=== PATIENT | male | born 1955 | race Caucasian/White ===

== ENCOUNTER 2017-02-09 12:22 | Inpatient (IN) | payer MEDICARE, MEDICAID ==
[~2017-02-09] VITALS: Ht 170.2 cm; Wt 66.3 kg
[2017-02-09] VITALS (17 sets, daily range): BP systolic 113–157; BP diastolic 47–126
[~2017-02-09 12:22] MED LIST: ACETAMINOPHEN325 M2 PO; ALBUTEROL2.5 MG/NEB IH; ALBUTEROL2.5 MG/NEB INH; ATIVAN1 MG PO; ATROVENT H0.017 MG/A IN; AUGMENTIN 875-1 EACH PO; AUGMENTIN1 TA1 PO; BUDESONIDE0.25 MG/1 IH; CEFDINIR 300MG300 MG PO; CLARITIN10 MG PO; COUMADIN3 M1 PO; FAMOTIDINE 20MG20 MG PO; FINASTERIDE5 MG PO; FLOMAX 0.4MG C0.4 MG PO; INDERAL10 MG PO; INHALER INH; KEFLEX 500MG.500 MG PO; LEVAQUIN500 MG PO; MEDROL 4MG. DOSE4 MG PO; MINOCYCLINE 10100 MG PO; MOBIC15 MG PO; MONTELUKAST SOD10 MG PO; NICODERM C21 MG/24 H TD; OMEPRAZOLE20 MG PO; PANTOPRAZOLE SO40 M1 PO; PERCOCET 5/3251 EACH PO; PERFOROMIS20 MCG/2 M IH; PREDNISONE 10MG10 MG PO; PREDNISONE 20MG20 MG PO; PREDNISONE 5MG.5 MG PO; PREDNISONE50 MG PO; TIZANIDINE HCL 44 MG PO; TRAMADOL 50MG T50 M1 PO; TRAZODONE 50MG50 MG PO; XANAX 0.25MG0.25 MG PO; XANAX 0.5MG TA0.5 MG PO; ZITHROMAX Z PA250 MG PO
--- NOTE | 2017-02-09 12:47 | Emergency Room Report ---
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 N Clinical Suspician of Infection? N Mental Status: 1 - Regular (Normal Baseline) Sepsis Risk:Severe Sepsis Risk Have you (or family members/close friends) recently traveled outside the [place]? N If Yes, where/when: Have you had exposure to infectious disease within the past month? N TB? Other? Specify: Comment The patient has severe shortness of breath. He has had a hacking cough for one week with some yellow sputum. He has felt feverish, but temperature not taken. Last night his breathing began getting worse and is now severely short of breath. He has severe chronic obstructive pulmonary disease. He has been on the ventilator in the past, most recently about a year and a half ago. He is a former smoker. He is on oxygen 2 L, 24 hours a day. He has a nebulizer he uses at home. He is on prednisone 5 mg a day maintenance. ALLERGIES Coded Allergies: Iodinated Contrast- Oral and IV Dye (Iodinated Contrast Media - IV Dye) (Severe, A-[id number]/THROAT 06/22/16) fluticasone (From Advair Diskus) (Severe, J-SPZEUM-TDMH/THROAT 06/22/16) salmeterol (From Advair Diskus) (Severe, C-GVZPCT-ANCT/THROAT 06/22/16) amoxicillin (Mild, 06/22/16) Home Medications Active Scripts CEFDINIR (Cefdinir) 300 MG PO DAILY #14 CAP Prov: 06/02/16 Prednisone (Prednisone 5MG) 5 MG PO BID #52 TAB Prov: 06/02/16 Prednisone (Prednisone 10MG) 10 MG PO DIRECTED #30 TAB Prov: 06/22/16 Prednisone (Prednisone 20MG) 20 MG PO BID #10 TAB Prov: 03/02/16 Reported Medications Alprazolam (Xanax 0.5MG) 0.5 MG PO BIDP PRN ANXIETY TIZANIDINE HCL (Tizanidine Hcl 4 Mg Tablet) 4 MG PO Q8HP PRN MUSCLE RELAXER TAMSULOSIN HCL (Flomax 0.4MG) 0.4 MG PO QHS Omeprazole (Omeprazole 20MG) 40 MG PO DAILY Formoterol Fumarate (Perforomist) 20 MCG IH DAILY Budesonide 0.25 MG IH BID Famotidine (Famotidine 20MG) 20 MG PO DAILY Finasteride 5 MG PO DAILY Propranolol Hcl (Inderal) 10 MG PO Q8HRS TRAZODONE HCL (Trazodone HCl) 50 MG PO QHS Loratadine (Claritin 10MG Tab) 10 MG PO DAILY ALBUTEROL (Albuterol 0.083% Neb) 2.5 MG INH PRN ASTHMA History Medical History General CAD? No Angina: Yes [place]: No Hypertension? No Hyperlipidemia? No CHF? No DVT? No PE? No COPD? Yes Asthma? Yes Anemia? No GERD? No Gastric ulcers? No GI Bleed? No Hernia? No Thyroid Problems? No Hypothyroidism? No CVA? No Seizures? No Diabetes? No Renal Insuffiency? No End Stage Renal Disease? No UTI? No Stones? Yes BPH? No GB Disease: No Nephritic Syndrome? No Asplenia? No Hepatitis? No Sickle Cell Disease? No Arthritis? Yes Migraines? No Cataracts? No Glaucoma? No MRSA? No HIV? No TB? No Anxiety? Yes Depression? No Cancer? No More? No Immunization Hx DT/Tetanus Unknown Flu Refused Pneumonia Excluded/Contraindicated Surgical Hx Previous Surgery?Y HEART CATH TONSILECTOMY EAR TUBEs TRACH GTUBE Family History Family Hx Diabetes No CAD No Hypertension Yes Hyperlipidemia No Cancer Yes TB No Social History Smoking Hx Smoker: Former Smoker Tobacco: Yes Type Cigarettes Packs/day < 1 Pack Alcohol Alcohol: No Review of Systems All Other Systems Reviewed and Negative Constitutional diaphoresis, fever Respiratory cough, shortness of breath, wheezing Cardiovascular chest pain (due to breathing problem) Gastrointestinal denies diarrhea, denies vomiting Physical Exam Vital Signs Vital Signs Date Time Temp Pulse Resp B/P Pulse O2 O2 Flow FiO2 Ox Delivery Rate 02/09 1545 12 02/09 1545 96 OXYGEN 12 02/09 1438 128 28 112/75 96 02/09 1433 123 30 179/80 96 02/09 1319 130 24 121/89 93 15 02/09 1312 18 02/09 1300 2 02/09 1230 99.1 120 28 126/93 94 15 02/09 1220 15 02/09 1220 15 02/09 1220 16 02/09 1220 35 02/09 1220 98 OXYGEN 15 General Appearance moderate distress, thin Eye Exam - bilateral eye normal exam, bilateral eye PERRL, bilateral eye EOMI Ear, Nose, Throat hearing grossly normal, normal ENT inspection Neck normal inspection, non-tender, supple, full range of motion Respiratory Status Yes: trachea midline, chest symmetrical, non tender chest. No: respiratory distress. Lung Sounds bilateral: decreased breath sounds. Cardiovascular no peripheral edema, no gallop, no JVD, no murmur, no rub, normal peripheral pulses, tachycardia Peripheral Pulses Pulses normal Yes Gastrointestinal normal bowel sounds, normal exam, non tender, soft, no organomegaly Extremities non-tender, normal range of motion, normal inspection Neurologic alert, normal exam, oriented x 3 Mental status very anxious, states takes Xanax at home, but has not had it today Skin intact, normal color, warm/dry Lymphatic no adenopathy Medical Decision Making LABS/Meds/Orders Pt receiving controlled substance in ED? Yes Irwin was queried for this patient? No Reason not queried - emergent pt cond=no time Results/Orders Laboratory Tests 02/09/17 1245: ABG pH 7.18 *L, ABG pCO2 (Temp Corrct 85.1 H, ABG pO2 (Temp Correct 299.2 H, ABG HCO3 30.9 H, ABG Total CO2 33.5 H, ABG O2 Sat (Calculated) 99.2, ABG Base Excess 2.5 H, Socrates Test ACCEPTABLE, Blood Gas Comments RIGHT RADIAL 02/09/17 1235: Lactic Acid 1.5 02/09/17 1235: Sodium 137, Potassium 4.7, Chloride 98, Carbon Dioxide 32, BUN 12, Creatinine 1.1, Estimated Creat Clear 64, Estimated GFR (MDRD) 68, Glucose 148 H, Calcium 9.6, Total Bilirubin 0.3, AST 12 L, ALT 21, Alkaline Phosphatase 97, Creatine Kinase 92, CK-MB (CK-2) Rel Index 2.4, CK and CKMB Interp 2.2, Troponin I < 0.02 , B-Natriuretic Peptide 9, Total Protein 8.9 H, Albumin 4.3, Globulin 4.6 H, Albumin/Globulin Ratio 0.9 L, WBC 13.0 H, RBC 5.20, Hgb 15.2, Hct 46.6, MCV 89.6, RDW 13.7, Plt Count 244, MPV 7.6, Gran % 86.8 H, Gran # 11.3 H, Total Counted 100, Lymphocytes % 8.4 L, Monocytes % 4.4, Eosinophils % 0.1, Basophils % 0.3, Neutrophils 89 H, Band Neutrophils 1, Lymphocytes (Manual) 6 L, Lymphocytes # 1.1, Monocytes (Manual) 3, Monocytes # 0.6, Eosinophils # 0.0, Basophils # 0.0, Metamyelocytes 1, Platelet Estimate NORMAL, PUBS MCHC 32.6, MCH 29.2 Current Medication Orders Sig/Andrews Start time Last Medication Dose Route Stop Time Status Admin Famotidine 20 MG DAILY 02/10 900 UNV PO Finasteride 5 MG DAILY 02/10 900 UNV PO Levofloxacin/Dextrose 150 ML DAILY 02/10 900 UNVr IV 02/14 1030 Loratadine 10 MG DAILY 02/10 900 UNV PO Tamsulosin HCl 0.4 MG QHS 02/09 2100 UNV PO Trazodone HCl 50 MG QHS 02/09 2100 UNV PO Albuterol/Ipratropium 3 ML QIDRT 02/09 2000 UNVr INH Methylprednisolone 80 MG Q6 02/09 1700 UNVr 02/09 Sodium Succinate IV 1744 Alprazolam 0.5 MG BIDP PRN 02/09 1500 UNV 02/09 PO 1745 Nicotine 21 MG DAILYP PRN 02/09 1500 UNV TD Sodium Chloride 10 ML PRN PRN 02/09 1500 UNV IV Tizanidine HCl 4 MG Q8HP PRN 02/09 1500 UNV PO Levofloxacin/Dextrose 150 ML .STK-MED ONE 02/09 1431 DC IV Levofloxacin/Dextrose 150 ML ONCE ONE 02/09 1345 DCr IV 02/09 1514 Lorazepam 0 .STK-MED ONE 02/09 1309 DC .ROUTE Albuterol/Ipratropium 3 ML Q30MIN 02/09 1300 DCr INH 02/09 1331 Lorazepam 0.5 MG ONCE ONE 02/09 1300 DC 02/09 IV 02/09 1301 1312 Methylprednisolone 125 MG ONCE ONE 02/09 1300 DCr 02/09 Sodium Succinate IV 02/09 1301 1311 Albuterol/Ipratropium 0 .STK-MED ONE 02/09 1258 DCr INH Albuterol/Ipratropium 0 .STK-MED ONE 02/09 1242 DCr INH Methylprednisolone 0 .STK-MED ONE 02/09 1235 DCr Sodium Succinate .ROUTE Albuterol/Ipratropium 3 ML ONCE ONE 02/09 1230 DCr INH 02/09 1231 Sodium Chloride 10 ML PRN PRN 02/09 1230 AC IV 02/10 1225 Orders Procedure Date/time Status DIET-REGULAR ( TOLERATED) 02/09 D Active ARTERIAL BLOOD GAS REQUEST 02/09 1600 Active RT Pulse Oximetry, Provide 02/09 1505 Active RT O2 Installation/Change Set 02/09 1505 Active RT O2 Therapy, Monitor/[place] 02/09 1505 Active RT BIPAP, Initial Setup/Change 02/09 1505 Active RT BIPAP, Monitor/Maintain 02/09 1505 Active RT Aerosol Treatment, Provide 02/09 1505 Active RT Aerosol Treatment, Provide 02/09 1505 Active BIPAP-INITIAL SETUP 02/09 1400 Complete Decision to admit 02/09 1344 Active RESP THERAPY REQUEST (GENERAL) 02/09 1334 Active FSBS REQUEST BY CARE AREA 02/09 1301 Active ARTERIAL BLOOD GAS REQUEST 02/09 1300 Active RT REQUEST DUONEB 02/09 1258 Active DIFFERENTIAL-WBC 02/09 1235 Complete ELECTROCARDIOGRAM REQUEST 02/09 1226 Active RT REQUEST DUONEB 02/09 1226 Active IV SALINE LOCK 02/09 1226 Active CULTURE, SPUTUM 02/09 1226 Active CULTURE, BLOOD 02/09 1226 Active LACTIC ACID 02/09 1226 Complete CBC WITH AUTO DIFF 02/09 1226 Complete CARDIAC ENZYMES 02/09 1226 Complete CHEM 12 PROFILE 02/09 1226 Complete BRAIN NATRIURETIC PEPTIDE 02/09 1226 Complete 12 LEAD EKG-LARISA (INITIAL) 02/09 1225 Active ADMIT PATIENT 02/09 UNK Active PULSE OXIMETRY REQUEST 02/09 UNK Active OXYGEN REQUEST 02/09 UNK Active RT REQUEST DUONEB 02/09 UNK Active VITAL SIGNS 02/09 UNK Active POM NURSE JOSÉ MIGUEL HOSE ORDER 02/09 UNK Active IV SALINE LOCK 02/09 UNK Active CODE STATUS 02/09 UNK Active PATIENT ACTIVITY ORDER 02/09 UNK Active CM/EKG CM/EKG Comments EKG interpreted by Yohannes Gunn MD: Rhythm: sinus tachycardia Rate: 122 [place]: Leftward Ectopy: none Conduction: normal ST Segment Changes: none T Wave Changes: none Q Waves: none No evidence of acute ischemia or injury Baseline artifact and wander present, but I consider the EKG adequate for accurate interpretation. XRAY/CT/US XRAY/CT/US XRAY chest Comment X-ray interpreted by Yohannes Gunn M.D.: severe chronic obstructive pulmonary disease, chronic conglomerate masses bilaterally Progress - 1:30 PM: I discussed blood gas results with patient and his ex-. They're both very adamant that they do not want him put on the ventilator "unless its life and situation". They both appear that he would not be able to get off of the ventilator as they almost never got him off the last time he was on it. He was on a ventilator for approximately 5 months at that time. They are agreeable at this time to trying BiPAP. 2:00 PM: I have discussed the case with Dr. Ahuja who agrees to admit the patient to the hospital. We discussed the patient's clinical information, including history, exam, laboratory and radiology results and ED course. Per hospital procedure, I will write temporary bridge inpatient orders on the patient. Specific orders requested by the admitting physician: Continue BiPAP, repeat ABGs and 2 hours. Continue antibiotics, steroids, nebulizer treatments. 2:30 PM: The patient did not tolerate BiPAP. He was spitting his dentures out, coughing continuously, extremely anxious. His ex- felt it was making him work too hard to breathe and she says that the last time he had coughing and gagging while on BiPAP it caused him to aspirate any ended up on the ventilator. I removed the BiPAP mask and removed his dentures. Respiratory therapy was called down. She has placed him on a Ventimask. He is getting another nebulizer treatment. He and his ex- still adamantly refuses intubation. Departure Departure Disposition Still a Patient Clinical Impression Primary Impression: Acute respiratory failure with hypoxia and hypercapnia Secondary Impressions: Acute bronchitis Qualifiers: Bronchitis organism: unspecified organism Qualified Code: J20.9 - Acute bronchitis, unspecified Acute exacerbation of chronic obstructive pulmonary disease Condition STABLE Referrals Leigha TOLBERT,Sean Mcdonald (Family) ED Critical Care Critical Care Yes Time spent 30-74 min Vital system(s) involved: Respiratory Failure I was present at bedside for Coordinating pt's care, Interpreting EKGs/Strips , During my initial exam, Reviewing lab results, Reviewing old records, Discussing pt condition, For re-examinations, Examining radiographs at 1930
[2017-02-09 12:49] LABS: HEMOGLOBIN 15.2 g/dL (14.1-18.0); LYMPH # 1.1 K/mm3 (0.7-4.5); LYMPH % 8.4 % (10-50)
[2017-02-09 13:14] LABS: BUN 12 mg/dL (7-18); GFR (ESTIMATED) 68 ML/MIN (>60)
[2017-02-09 13:15] LABS: NEUTROPHILS 89 % (42-76)
--- NOTE | 2017-02-09 13:51 | RADIOLOGY REPORT PS360 ---
CHEST-PORTABLE HISTORY: Shortness of air, COPD SOA ORDERING PHYSICIAN: Yohannes Gunn MD PATIENT AGE: 61 years COMPARISON: 06/22/2016 FINDINGS: The cardiomediastinal silhouette and pulmonary vascularity are within normal limits. COPD with bilateral prominent pulmonary parenchymal opacities once again noted consistent with conglomerate masses. No new areas of consolidation.. No acute bony abnormalities. IMPRESSION: COPD with conglomerate masses with overall no significant change
[2017-02-09 14:58] LABS: ALLEN'S TEST ACCEPTABLE; ARTERIAL ABE 2.5 MMOL/L (-2.4-+2.3); ARTERIAL PO2 299.2 MMHG (80-100); ARTERIAL TCO2 33.5 MMOL/L (23-27); OXYGEN 100% NRB
[2017-02-09] MEDS ORDERED: SYMBICORT1 AE1 IH (20:41)
[2017-02-09] MEDS ORDERED: AMLO5TAB PO (20:43)
[2017-02-09 21:14] LABS: CORONAVIRUS 229E NOT DETECTED (NOT DETECTE); CORONAVIRUS HKU 1 NOT DETECTED (NOT DETECTE); CORONAVIRUS NL63 NOT DETECTED (NOT DETECTE); CORONAVIRUS OC43 NOT DETECTED (NOT DETECTE)
[2017-02-10] VITALS (20 sets, daily range): BP systolic 111–172; BP diastolic 71–101
[2017-02-10 02:09] LABS: RHINOVIRUS/ENTEROVIRUS DETECTED (NOT DETECTE)
[2017-02-10 06:22] LABS: ALLEN'S TEST ACCEPTABLE; ARTERIAL ABE 3.1 MMOL/L (-2.4-+2.3); ARTERIAL PO2 61.2 MMHG (80-100); OXYGEN 28%
--- NOTE | 2017-02-10 08:37 | HISTORY AND PHYSICAL REPORT ---
Demographics: Admit date: 02/09/17 Chief complaint: sob PRIMARY DIAGNOSIS: COPD Allergies: Coded Allergies: Iodinated Contrast- Oral and IV Dye (Iodinated Contrast Media - IV Dye) (Severe, J-[id number]-IFUI/THROAT 06/22/16) fluticasone (From Advair Diskus) (Severe, W-UKPYOO-DQAB/THROAT 06/22/16) salmeterol (From Advair Diskus) (Severe, C-XSLDVE-ETLO/THROAT 06/22/16) amoxicillin (Mild, 06/22/16) History of present illness: History of present illness: this wm presented to ed with progressive sob and wheezing over the last few days despite op rx - pt has sig hx of copd and in past had prolonged intubation and on ventilator - patient has severe shortness of breath. He has had a hacking cough for one week with some yellow sputum. He has felt feverish, but temperature not taken. Last night his breathing began getting worse and is now severely short of breath. He has severe chronic obstructive pulmonary disease. He has been on the ventilator in the past, most recently about a year and a half ago. He is a former smoker. He is on oxygen 2 L, 24 hours a day. He has a nebulizer he uses at home. He is on prednisone 5 mg a day maintenance.this noted from ed record Past medical history: Family HX Diabetes No CAD No Hypertension Yes Hyperlipidemia No Cancer Yes TB No Immunization HX DT/Tetanus Unknown Flu Refused Pneumonia Excluded/Contraindicated TB Test in last year No General CAD? No Angina: Yes [place]: No Hypertension? No Hyperlipidemia? No CHF? No DVT? No PE? No COPD? Yes Asthma? Yes Anemia? No GERD? No Gastric ulcers? No GI Bleed? No Hernia? No Thyroid Problems? No Hypothyroidism? No CVA? No Seizures? No Diabetes? No Renal Insuffiency? No UTI? No Stones? Yes BPH? No GB Disease: No Nephritic Syndrome? No Asplenia? No Hepatitis? No Sickle Cell Disease? No Arthritis? Yes Migraines? No Cataracts? No Glaucoma? No MRSA? No HIV? No TB? No Anxiety? Yes Depression? No Cancer? No More? No Past Surgical HX Previous Surgery?Y HEART CATH TONSILECTOMY EAR TUBEs TRACH GTUBE Current home meds: Active Scripts CEFDINIR (Cefdinir) 300 MG PO DAILY #14 CAP Prov: 06/02/16 Prednisone (Prednisone 5MG) 5 MG PO BID #52 TAB Prov: 06/02/16 Reported Medications Alprazolam (Xanax 0.5MG) 0.25 MG PO BIDP PRN ANXIETY BUDESONIDE/FORMOTEROL FUMARATE (Symbicort 160-4.5 Mcg Inhaler) 1 PUFF IH BID Amlodipine Besylate (Amlodipine) 5 MG PO DAILY TAMSULOSIN HCL (Flomax 0.4MG) 0.4 MG PO QHS Omeprazole (Omeprazole 20MG) 40 MG PO DAILY Formoterol Fumarate (Perforomist) 20 MCG IH DAILY Budesonide 0.25 MG IH BID Famotidine (Famotidine 20MG) 20 MG PO DAILY Finasteride 5 MG PO DAILY Propranolol Hcl (Inderal) 10 MG PO Q8HRS TRAZODONE HCL (Trazodone HCl) 50 MG PO QHS Loratadine (Claritin 10MG Tab) 10 MG PO DAILY ALBUTEROL (Albuterol 0.083% Neb) 2.5 MG INH PRN ASTHMA Social Hx: Smoking HX Tobacco Yes Type Cigarettes Packs/day < 1 PACK Are you/the child exposed to second-hand smoke: No Alcohol Alcohol: No Hx of Drug Use Drug Use? No Patien't marital status is Patient's support system is excellent Review of systems: Constitutional No: fever. Eyes No: drainage. Ears, Nose, Mouth, Throat No ear pain, No ear discharge, No epistaxis, No throat pain Respiratory cough, SOB at rest, wheezing. No: shortness of breath. Cardiovascular chest pain, No palpitations, No syncope Gastrointestinal/Abdominal poor appetite, poor fluid intake, No vomiting Genitourinary No: dysuria, frequency, hesitancy, hematuria. Musculoskeletal No: back pain, joint pain, joint swelling, neck pain. Skin No: rash. Neurological No: headache, seizure disorder. Psychiatric Yes: anxious. Exam: Lab data for last 24 hours: Laboratory Tests 02/10/17 0605: ABG pH 7.23 *L, ABG pCO2 (Temp Corrct 75.7 H, ABG pO2 (Temp Correct 61.2 L, ABG HCO3 33.0 H, ABG Total CO2 33.0 H, ABG O2 Sat (Calculated) 88.5 L, ABG Base Excess 3.1 H, Socrates Test ACCEPTABLE, Blood Gas Comments LEFT RADIAL 02/09/17 2100: Chlamy pneum (TEM-PCR) NOT DETECTED, Adenovirus (PCR) NOT DETECTED, B. pertussis DNA (PCR) NOT DETECTED, Coronavirus OC43 (PCR) NOT DETECTED, Coronavirus HKU1 ( PCR) NOT DETECTED, Coronavirus 229E (PCR) NOT DETECTED, Coronavirus NL63 (PCR) NOT DETECTED, Human Metapneumovir PCR NOT DETECTED, Influenza A (H1) PCR NOT DETECTED, Influ A (H1N1/) PCR NOT DETECTED, Influenza A (H3) PCR NOT DETECTED, Influenza Type A (PCR) NOT DETECTED, Influenza Type B (PCR) NOT DETECTED, M. pneumoniae (PCR) NOT DETECTED, Parainfluenza 1 (PCR) NOT DETECTED, Parainfluenza 2 (PCR) NOT DETECTED, Parainfluenza 3 (PCR) NOT DETECTED, Parainfluenza 4 (PCR) NOT DETECTED, RSV (PCR) NOT DETECTED, Entero/Rhino (PCR) DETECTED H 02/09/17 1245: ABG pH 7.18 *L, ABG pCO2 (Temp Corrct 85.1 H, ABG pO2 (Temp Correct 299.2 H, ABG HCO3 30.9 H, ABG Total CO2 33.5 H, ABG O2 Sat (Calculated) 99.2, ABG Base Excess 2.5 H, Socrates Test ACCEPTABLE, Blood Gas Comments RIGHT RADIAL 02/09/17 1235: Lactic Acid 1.5 02/09/17 1235: Sodium 137, Potassium 4.7, Chloride 98, Carbon Dioxide 32, BUN 12, Creatinine 1.1, Estimated Creat Clear 64, Estimated GFR (MDRD) 68, Glucose 148 H, Calcium 9.6, Total Bilirubin 0.3, AST 12 L, ALT 21, Alkaline Phosphatase 97, Creatine Kinase 92, CK-MB (CK-2) Rel Index 2.4, CK and CKMB Interp 2.2, Troponin I < 0.02 , B-Natriuretic Peptide 9, Total Protein 8.9 H, Albumin 4.3, Globulin 4.6 H, Albumin/Globulin Ratio 0.9 L, WBC 13.0 H, RBC 5.20, Hgb 15.2, Hct 46.6, MCV 89.6, RDW 13.7, Plt Count 244, MPV 7.6, Gran % 86.8 H, Gran # 11.3 H, Total Counted 100, Lymphocytes % 8.4 L, Monocytes % 4.4, Eosinophils % 0.1, Basophils % 0.3, Neutrophils 89 H, Band Neutrophils 1, Lymphocytes (Manual) 6 L, Lymphocytes # 1.1, Monocytes (Manual) 3, Monocytes # 0.6, Eosinophils # 0.0, Basophils # 0.0, Metamyelocytes 1, Platelet Estimate NORMAL, PUBS MCHC 32.6, MCH 29.2 Microbiology 02/10 050 SPUTUM: Sputum Culture - RES 02/10 050 SPUTUM: Gram Stain - RES 02/09 123 BLOOD: Anaerobic Blood Culture - RECD 02/09 123 BLOOD: Aerobic Blood Culture - RECD 02/09 1235 BLOOD: Anaerobic Blood Culture - RECD 02/09 1235 BLOOD: Aerobic Blood Culture - RECD Admission vital signs: 1ST Vital Signs Result Date Time Pulse Ox 98 02/09 1220 O2 Delivery OXYGEN 02/09 1220 O2 Flow Rate 15 02/09 1220 B/P 126/93 02/09 1230 Temp 99.1 02/09 1230 Pulse 120 02/09 1230 Resp 28 02/09 1230 Exam General appearance: alert, awake, anxious Eyes: anicteric, PERRLA ENT: dry mucous membranes Neck: no JVD Cardiovascular: regular rate & rhythm, murmur Respiratory: on oxygen, diminished breath sounds, wheezing ABD: soft Genitourinary: normal voiding & quantity Extremities: moves all Musculoskeletal: equal muscle strength Skin: dry Neuro: alert, technical solutions engineer II-XII nml as tested Additional information: will try bpap but pt has diff with this and discussed possible intubation with pt Plan: Problem List 1. Acute respiratory failure with hypoxia and hypercapnia 2. COPD (chronic obstructive pulmonary disease) 3. Anxiety Plan: will continue with steroids and resp trx at 0837
--- NOTE | 2017-02-10 09:14 | PHARMACY CLINIC NOTE ---
Patient Demographics Patient Demographics Admission date: 02/09/17 Date: 02/10/17 Time: 0913 Allergies Coded Allergies: Iodinated Contrast- Oral and IV Dye (Iodinated Contrast Media - IV Dye) (Severe, I-CKYONP-RHTK/THROAT 06/22/16) fluticasone (From Advair Diskus) (Severe, R-CIGKTG-NCHZ/THROAT 06/22/16) salmeterol (From Advair Diskus) (Severe, A-KMLTAA-QJPU/THROAT 06/22/16) amoxicillin (Mild, 06/22/16) HEIGHT- FT: 5 IN: 7.00 K.735 VTE General Information Labs: Laboratory Tests 02/09 1235 Hematology Hgb (14.1 - 18.0 g/dL) 15.2 Hct (42.0 - 52.0 %) 46.6 Plt Count (142 - 424 K/mm3) 244 Disclaimer The following section includes nursing documentation that has been pulled in for pharmacy review. Patient's VTE score: 4 Patient's VTE Risk: LOW RISK Clinical trial participant? No VTE prophylaxis [id number] VTE prophylaxis ordered? Yes Type of prophylaxis/treatment: JOSÉ MIGUEL at 0913
--- NOTE | 2017-02-10 09:14 | PHARMACY CLINIC NOTE ---
Patient Demographics Patient Demographics Admission date: 02/09/17 Date: 02/10/17 Time: 0913 Allergies Coded Allergies: Iodinated Contrast- Oral and IV Dye (Iodinated Contrast Media - IV Dye) (Severe, K-AXRQCM-BBHN/THROAT 06/22/16) fluticasone (From Advair Diskus) (Severe, K-RGEXFP-FBEV/THROAT 06/22/16) salmeterol (From Advair Diskus) (Severe, Z-MTGMIC-FFTD/THROAT 06/22/16) amoxicillin (Mild, 06/22/16) HEIGHT- FT: 5 IN: 7.00 K.735 VTE General Information Labs: Laboratory Tests 02/09 1235 Hematology Hgb (14.1 - 18.0 g/dL) 15.2 Hct (42.0 - 52.0 %) 46.6 Plt Count (142 - 424 K/mm3) 244 Disclaimer The following section includes nursing documentation that has been pulled in for pharmacy review. Patient's VTE score: 4 Patient's VTE Risk: LOW RISK Clinical trial participant? No VTE prophylaxis [id number] VTE prophylaxis ordered? Yes Type of prophylaxis/treatment: JOSÉ MIGUEL at 0913
[2017-02-11] VITALS (20 sets, daily range): BP systolic 106–166; BP diastolic 45–109
--- NOTE | 2017-02-11 12:44 | ACUTE CARE PROGRESS NOTE (QUA) ---
Progress Notes Subjective Date 02/11/17 Time 1241 Note doing better Patient/family reports: feeling better Nursing reports: shortness of breath Objective Findings Last VS-Temp:97.5 B/P:166/100 Pulse:112 Resp:24 SaO2:91 OXYGEN Last weight lbs:147 oz:2 K.735 Method:Bed Scales Exam General appearance: alert, awake Eyes: anicteric, PERRLA ENT: dry mucous membranes Neck: no JVD Cardiovascular: regular rate & rhythm, murmur Respiratory: diminished breath sounds, rhonchi, wheezing, accessory muscle use ABD: soft Genitourinary: no hematuria Extremities: moves all Musculoskeletal: equal muscle strength Skin: dry Neuro: alert, 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 Acute respiratory failure with hypoxia and hypercapnia 2. COPD (chronic obstructive pulmonary disease) 3. Anxiety Patient condition Stable Plan: continue current care This inpt stay is expected to cross 2 MNs from start of care Yes Comments: will continue with present rx and pul consult at 1242
--- NOTE | 2017-02-11 12:44 | ACUTE CARE PROGRESS NOTE (QUA) ---
Progress Notes Subjective Date 02/11/17 Time 1241 Note doing better Patient/family reports: feeling better Nursing reports: shortness of breath Objective Findings Last VS-Temp:97.5 B/P:166/100 Pulse:112 Resp:24 SaO2:91 OXYGEN Last weight lbs:147 oz:2 K.735 Method:Bed Scales Exam General appearance: alert, awake Eyes: anicteric, PERRLA ENT: dry mucous membranes Neck: no JVD Cardiovascular: regular rate & rhythm, murmur Respiratory: diminished breath sounds, rhonchi, wheezing, accessory muscle use ABD: soft Genitourinary: no hematuria Extremities: moves all Musculoskeletal: equal muscle strength Skin: dry 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 Acute respiratory failure with hypoxia and hypercapnia 2. COPD (chronic obstructive pulmonary disease) 3. Anxiety Patient condition Stable Plan: continue current care This inpt stay is expected to cross 2 MNs from start of care Yes Comments: will continue with present rx and pul consult at 124
[2017-02-11 13:34] LABS: GFR (ESTIMATED) 61 ML/MIN (>60)
[2017-02-11 13:35] LABS: LYMPH # 0.4 K/mm3 (0.7-4.5); LYMPH % 1.7 % (10-50)
[2017-02-11 13:37] LABS: HEMOGLOBIN 13.4 g/dL (14.1-18.0)
[2017-02-11 13:37] LABS: ARTERIAL ABE 3.5 MMOL/L (-2.4-+2.3); ARTERIAL PO2 62.6 MMHG (80-100); ARTERIAL TCO2 31.3 MMOL/L (23-27)
[2017-02-11 13:38] LABS: ALLEN'S TEST ACCEPTABLE
[2017-02-11 13:46] LABS: BUN 30 mg/dL (7-18)
[2017-02-11 16:04] LABS: NEUTROPHILS 91 % (42-76)
--- NOTE | 2017-02-11 17:39 | RADIOLOGY REPORT PS360 ---
CHEST-PORTABLE HISTORY: sob/copd Patient Age: 61 years: Male Ordering Physician: Sean Ahuja MD TECHNIQUE: AP portable upright chest COMPARISON: 06/22/2016 & February 09, 2017 FINDINGS: COPD with bilateral prominent pulmonary parenchymal opacities once again noted, consistent with conglomerate masses. No new areas of consolidation... No acute or focal pneumonia. . No pneumothorax nor pleural effusion. Chest wall intact. Heart normal size. The cardiomediastinal silhouette and pulmonary vascularity are within normallimits. No acute bony abnormalities. Springlike device projected over the left upper chest and apex, inferior to the head of left clavicle most likely is related to overlapping overlying structure. IMPRESSION: Nothing definite acute COPD with conglomerate masses with overall no significant change
[2017-02-11] MEDS ORDERED: IPRATROPIUM BROM3 M1 IH (22:58)
[2017-02-11] MEDS ORDERED: SINGULAIR 10 MG10 MG PO (22:59)
[2017-02-11] MEDS ORDERED: MIRALAX17 GM/PACK PO (22:59)
[2017-02-12] VITALS (14 sets, daily range): BP systolic 106–158; BP diastolic 56–98
--- NOTE | 2017-02-12 06:47 | ACUTE CARE PROGRESS NOTE (QUA) ---
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 Acute respiratory failure with hypoxia and hypercapnia 2. COPD (chronic obstructive pulmonary disease) 3. Anxiety Patient condition Improving Plan: make medication changes This inpt stay is expected to cross 2 MNs from start of care Yes Comments: discussed with family and will so speech eval as dietary concerned about swallowing at 0646
--- NOTE | 2017-02-12 06:47 | ACUTE CARE PROGRESS NOTE (QUA) ---
Progress Notes Subjective Date 02/12/17 Time 0644 Note doing better Patient/family reports: feeling better Nursing reports: cough Objective Findings Last VS-Temp:97.9 B/P:136/85 Pulse:105 Resp:20 SaO2:92 OXYGEN Last weight lbs:149 oz:1 K.614 Method:Bed Scales Exam General appearance: alert, awake Eyes: PERRLA ENT: dry mucous membranes Neck: no JVD Cardiovascular: regular rate & rhythm Respiratory: diminished breath sounds, rhonchi, wheezing ABD: soft Genitourinary: no hematuria Extremities: moves all Musculoskeletal: equal muscle strength Skin: dry Neuro: alert, drink mixer II-XII nml as tested Reviewed: allergies, medications, vital signs, lab results, radiology report, nursing notes Assessment/Plan Problem List 1. Acute respiratory failure with hypoxia and hypercapnia 2. COPD (chronic obstructive pulmonary disease) 3. Anxiety Patient condition Improving Plan: make medication changes This inpt stay is expected to cross 2 MNs from start of care Yes Comments: discussed with family and will so speech eval as dietary concerned about swallowing at 0646
--- NOTE | 2017-02-12 14:39 | ST MODIFIED BARIUM SWALLOW ---
SUBJECTIVE-DYSPHAGIA Date: 02/12/17 Time: 1330 Eval Type: Initial Certification - Admitted Date: 02/09/17 Primary Diagnosis: COPD Reason for Consult: COPD Pt/Caregiver Concerns: RULE OUT SILENT ASPIRATION Onset of symptoms- MEDICAL HX UNKNOWN Symptoms have worsened? NO improved? NO resolved? NO since onset. Current Diet: MECHANICAL SOFT/THINS Allergies Coded Allergies: Iodinated Contrast- Oral and IV Dye (Iodinated Contrast Media - IV Dye) (Severe, T-[id number]-CXJG/THROAT 06/22/16) fluticasone (From Advair Diskus) (Severe, Y-LJGKTF-KNDN/THROAT 06/22/16) salmeterol (From Advair Diskus) (Severe, P-ZCDMIA-QECG/THROAT 06/22/16) amoxicillin (Mild, 06/22/16) Home Medications Active Scripts CEFDINIR (Cefdinir) 300 MG PO DAILY #14 CAP Prov: 06/02/16 Prednisone (Prednisone 5MG) 5 MG PO BID #52 TAB Prov: 06/02/16 Reported Medications Omeprazole (Omeprazole 20MG) 20 MG PO DAILY Amlodipine Besylate (Amlodipine) 5 MG PO DAILY TAMSULOSIN HCL (Flomax 0.4MG) 0.4 MG PO QHS Budesonide 0.25 MG IH BID Famotidine (Famotidine 20MG) 20 MG PO DAILY Finasteride 5 MG PO DAILY TRAZODONE HCL (Trazodone HCl) 50 MG PO QHS Loratadine (Claritin 10MG Tab) 10 MG PO DAILY Alprazolam (Xanax 0.5MG) 0.5 MG PO BID Formoterol Fumarate (Perforomist) 20 MCG IH BID Propranolol Hcl (Inderal) 10 MG PO TID ALBUTEROL (Albuterol 0.083% Neb) 2.5 MG INH TID BUDESONIDE/FORMOTEROL FUMARATE (Symbicort 160-4.5 Mcg Inhaler) 2 PUFF IH BID ALBUTEROL-IPRATROPIUM (Iprat-Albut 0.5-3(2.5) MG/3 Ml) 3 ML IH QID Polyethylene Glycol 3350 (Miralax) 17 GM PO DAILY Montelukast Sodium (Singulair 10MG) 10 MG PO DAILY Is this assessment r/t stroke? No OBJECTIVE COMMUNICATION/COGNITION Barriers to communication/cog? Yes Orientation POS: Name, Place, Day, Year. NEG: Date. Follows Commands POS: Follows 1-step commands, Follows 2-step commands. Able to remember swallow strategies? Yes Intelligibility Poor Barriers to communication: DECREASED INTELLIGIBILITY ORAL-MOTOR STRUCTURE/FUNCTION Structure/Function WFL: Labial, Buccal, Lingual, Velar, Mandibular. Facial Asymmetry None Laryngeal Function Weak: Voluntary Cough, Throat Clearing. Vocal Quality Normal Dentition Edentulous Comments PT HAS DENTURES BUT NOT AVAILABLE AT THIS TIME RESPIRATORY STATUS/HISTORY Is resp status/hx a concern? Yes Requires Oxygen: Cannula Breathes from mouth? Yes Risk-fatigue due to comp.resp? Yes DYSPHAGIA SIGNS W/CONSISTENCY Any S/S of Dysphagia? Yes VIDEO SWALLOW REPORT Radiologist: Panda TOLBERT,Socrates Lacey Level of consciousness: Alert Position (degrees): 90 ORAL STAGE Consistencies used for study: Thin, Pudding, Mechanical Soft, Solid, Pill - WFL: Bolus Formation:, Initiation of Swallow:. - No: Syed.spilled into pharynx, Oral Residue. PHARYNGEAL STAGE Consistencies used for study: Thin, Pudding, Mechanical Soft, Solid, Pill Delayed Swallow Reflex? No Epiglottic Closure WFL Penetration-Laryngeal Vestibul Yes (THINS VIA STRAW) - Aspiration? No Pharyngeal Residue? No ASSESSMENT/PLAN ASSESSMENT Impression Mr. Nunn, a 61 year old male, was referred for a MBS by his physician, Dr. Ahuja. Mr. 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 He was evaluated for outpatient therapy following an extensive stay at and [facility]. It was determined therapy was not recommended at that time. Mr. Nunn was advised to eat small bites and to avoid straws. Mr. Nunn was given the following consistencies: thins via straw and open cup, pudding, mechanical soft, regular, and pill with thin wash. Mr. Nunn did exhibit mild penetration into laryngeal vestibule but no aspiration was noted. At this time, it is advised that Mr. Nunn remain on current diet. Straws are not recommened. Mr. Nunn is at risk for fatigue due to compromised respiratory status. Speech therapy is not warranted at this time. PLAN RECOMMENDATIONS Further skill serv. indicated No SWALLOW GUIDELINES Standard Aspiration Prec., Liquids Given (Spoon Only) PATIENT/CAREGIVER EDUCATION Able-recall/restate what told? Yes RN educated on Diet Consistency, Swallow Guidelines Rehab Medicare G Code Plan Medicare/G Code eligible? 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
--- NOTE | 2017-02-12 14:39 | ST MODIFIED BARIUM SWALLOW ---
SUBJECTIVE-DYSPHAGIA Date: 02/12/17 Time: 1330 Eval Type: Initial Certification - Admitted Date: 02/09/17 Primary Diagnosis: COPD Reason for Consult: COPD Pt/Caregiver Concerns: RULE OUT SILENT ASPIRATION Onset of symptoms- MEDICAL HX UNKNOWN Symptoms have worsened? NO improved? NO resolved? NO since onset. Current Diet: MECHANICAL SOFT/THINS Allergies Coded Allergies: Iodinated Contrast- Oral and IV Dye (Iodinated Contrast Media - IV Dye) (Severe, Z-[id number]-[id number]/THROAT 06/22/16) fluticasone (From Advair Diskus) (Severe, K-[id number]-WFIN/THROAT 06/22/16) salmeterol (From Advair Diskus) (Severe, X-EGUFEY-MOEL/THROAT 06/22/16) amoxicillin (Mild, 06/22/16) Home Medications Active Scripts CEFDINIR (Cefdinir) 300 MG PO DAILY #14 CAP Prov: 06/02/16 Prednisone (Prednisone 5MG) 5 MG PO BID #52 TAB Prov: 06/02/16 Reported Medications Omeprazole (Omeprazole 20MG) 20 MG PO DAILY Amlodipine Besylate (Amlodipine) 5 MG PO DAILY TAMSULOSIN HCL (Flomax 0.4MG) 0.4 MG PO QHS Budesonide 0.25 MG IH BID Famotidine (Famotidine 20MG) 20 MG PO DAILY Finasteride 5 MG PO DAILY TRAZODONE HCL (Trazodone HCl) 50 MG PO QHS Loratadine (Claritin 10MG Tab) 10 MG PO DAILY Alprazolam (Xanax 0.5MG) 0.5 MG PO BID Formoterol Fumarate (Perforomist) 20 MCG IH BID Propranolol Hcl (Inderal) 10 MG PO TID ALBUTEROL (Albuterol 0.083% Neb) 2.5 MG INH TID BUDESONIDE/FORMOTEROL FUMARATE (Symbicort 160-4.5 Mcg Inhaler) 2 PUFF IH BID ALBUTEROL-IPRATROPIUM (Iprat-Albut 0.5-3(2.5) MG/3 Ml) 3 ML IH QID Polyethylene Glycol 3350 (Miralax) 17 GM PO DAILY Montelukast Sodium (Singulair 10MG) 10 MG PO DAILY Is this assessment r/t stroke? No OBJECTIVE COMMUNICATION/COGNITION Barriers to communication/cog? Yes Orientation POS: Name, Place, Day, Year. NEG: Date. Follows Commands POS: Follows 1-step commands, Follows 2-step commands. Able to remember swallow strategies? Yes Intelligibility Poor Barriers to communication: DECREASED INTELLIGIBILITY ORAL-MOTOR STRUCTURE/FUNCTION Structure/Function WFL: Labial, Buccal, Lingual, Velar, Mandibular. Facial Asymmetry None Laryngeal Function Weak: Voluntary Cough, Throat Clearing. Vocal Quality Normal Dentition Edentulous Comments PT HAS DENTURES BUT NOT AVAILABLE AT THIS TIME RESPIRATORY STATUS/HISTORY Is resp status/hx a concern? Yes Requires Oxygen: Cannula Breathes from mouth? Yes Risk-fatigue due to comp.resp? Yes DYSPHAGIA SIGNS W/CONSISTENCY Any S/S of Dysphagia? Yes VIDEO SWALLOW REPORT Radiologist: Panda TOLBERT,Socrates Lacey Level of consciousness: Alert Position (degrees): 90 ORAL STAGE Consistencies used for study: Thin, Pudding, Mechanical Soft, Solid, Pill - WFL: Bolus Formation:, Initiation of Swallow:. - No: Syed.spilled into pharynx, Oral Residue. PHARYNGEAL STAGE Consistencies used for study: Thin, Pudding, Mechanical Soft, Solid, Pill Delayed Swallow Reflex? No Epiglottic Closure WFL Penetration-Laryngeal Vestibul Yes (THINS VIA STRAW) - Aspiration? No Pharyngeal Residue? No ASSESSMENT/PLAN ASSESSMENT Impression Mr. Nunn, a 61 year old male, was referred for a MBS by his physician, Dr. Ahuja. Mr. 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 He was evaluated for outpatient therapy following an extensive stay at and [facility]. It was determined therapy was not recommended at that time. Mr. Nunn was advised to eat small bites and to avoid straws. Mr. Nunn was given the following consistencies: thins via straw and open cup, pudding, mechanical soft, regular, and pill with thin wash. Mr. Nunn did exhibit mild penetration into laryngeal vestibule but no aspiration was noted. At this time, it is advised that Mr. Nunn remain on current diet. Straws are not recommened. Mr. Nunn is at risk for fatigue due to compromised respiratory status. Speech therapy is not warranted at this time. PLAN RECOMMENDATIONS Further skill serv. indicated No SWALLOW GUIDELINES Standard Aspiration Prec., Liquids Given (Spoon Only) PATIENT/CAREGIVER EDUCATION Able-recall/restate what told? Yes RN educated on Diet Consistency, Swallow Guidelines Rehab Medicare G Code Plan Medicare/G Code eligible? 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
--- NOTE | 2017-02-12 16:39 | RADIOLOGY REPORT PS360 ---
ESOPHAGUS W/CINERADIOGRAPHY: 02/12/2017 3:37 PM CLINICAL HISTORY: Dysphasia, silent aspiration with PEG placement ORDERING PHYSICIAN: Sean Ahuja MD PATIENT AGE: 61 years COMPARISON: TECHNIQUE: Patient administered varying consistencies of barium contrast, while viewed in lateral position under real-time fluoroscopy with cine recording. FLUOROSCOPY TIME: 2 minutes and 53 seconds The study was performed in conjunction with speech pathologist. Please see that report & recommendations. FINDINGS: Patient was given varying consistencies of barium. This consisted of then, putting, mechanical soft, solid, pill. No aspiration or vestibular penetration. There was some premature spillage into the pharynx with some oral residue IMPRESSION: No aspiration apparent. Please see speech pathologist report and recommendations.
[2017-02-13] VITALS (9 sets, daily range): BP systolic 104–161; BP diastolic 60–95
--- NOTE | 2017-02-13 07:02 | ACUTE CARE PROGRESS NOTE (QUA) ---
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 Acute respiratory failure with hypoxia and hypercapnia 2. COPD (chronic obstructive pulmonary disease) 3. Anxiety Patient condition Improving Plan: order additional tests This inpt stay is expected to cross 2 MNs from start of care Yes Comments: will check labs - pt doing better at 0702
--- NOTE | 2017-02-13 07:02 | ACUTE CARE PROGRESS NOTE (QUA) ---
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 Acute respiratory failure with hypoxia and hypercapnia 2. COPD (chronic obstructive pulmonary disease) 3. Anxiety Patient condition Improving Plan: order additional tests This inpt stay is expected to cross 2 MNs from start of care Yes Comments: will check labs - pt doing better at 0702
[2017-02-13 07:31] LABS: ARTERIAL ABE 91.6 MMOL/L (-2.4-+2.3); ARTERIAL PO2 66.4 MMHG (80-100); ARTERIAL TCO2 37.3 MMOL/L (23-27); OXYGEN 3LPM
[2017-02-13 07:32] LABS: ALLEN'S TEST ACCEPTABLE
[2017-02-13 07:33] LABS: HEMOGLOBIN 13.8 g/dL (14.1-18.0); LYMPH # 0.4 K/mm3 (0.7-4.5); LYMPH % 3.4 % (10-50)
--- NOTE | 2017-02-13 08:45 | ACUTE CARE PROGRESS NOTE (QUA) ---
Progress Notes Subjective Date 02/13/17 Time 0843 Assessment/Plan Problem List 1. Acute respiratory failure with hypoxia and hypercapnia 2. COPD (chronic obstructive pulmonary disease) 3. Anxiety This inpt stay is expected to cross 2 MNs from start of care Yes Antibiotic Stewardship (2) Current Culture Results Microbiology 02/10 0500 SPUTUM: Sputum Culture - COMP 02/10 0500 SPUTUM: Gram Stain - COMP 02/09 1235 BLOOD: Anaerobic Blood Culture - RES 02/09 1235 BLOOD: Aerobic Blood Culture - RES Infxn that will respond? Yes Right drug,dose,and route? Yes More targeted antbx? No Comment: PATIENT WBC DROPPED FROM 21.7K ON 02/11 TO 12.6K ON 02/13. at 0844
[2017-02-13 09:44] LABS: NEUTROPHILS 92 % (42-76)
[2017-02-14] VITALS (11 sets, daily range): BP systolic 109–147; BP diastolic 68–90
--- NOTE | 2017-02-14 09:51 | ACUTE CARE PROGRESS NOTE (QUA) ---
Progress Notes Subjective Date 02/14/17 Time 0945 Patient/family reports: no complaints, shortness of breath Nursing reports: alert, shortness of breath Objective Findings Vital Signs Date Time Temp Pulse Resp B/P Pulse O2 O2 Flow FiO2 Ox Delivery Rate 02/14 0634 3 02/14 0626 98 OXYGEN 3 02/14 0601 2 02/14 0556 98.3 99 19 133/82 95 2 02/14 0520 2 02/14 0416 2 02/14 0310 2 02/14 0155 2 02/14 0016 2 02/13 2218 35 02/13 2200 2 02/13 2120 98.3 75 27 140/97 97 2 02/13 2115 2 02/13 2000 75 27 104/60 100 OXYGEN 2 02/137 2 02/13 1945 2 02/13 1915 2 02/13 191 88 ROOM AIR 02/13 1823 2 02/13 1700 98.4 102 26 133/87 88 OXYGEN 2 02/13 1500 98.6 105 26 126/94 89 OXYGEN 4 02/13 1300 4 02/13 1300 98.6 102 26 138/82 90 OXYGEN 4 02/13 1100 98.6 110 26 161/92 91 Current Medications Benzonatate 0 .STK-MED ONE PO (DC) Guaifenesin/Dextromethorphan 0 .STK-MED ONE .ROUTE (DC) Alprazolam 0 .STK-MED ONE .ROUTE (DC) Benzonatate 0 .STK-MED ONE PO (DC) Tizanidine HCl 0 .STK-MED ONE .ROUTE (DC) Alprazolam 0 .STK-MED ONE .ROUTE (DC) Alprazolam 0 .STK-MED ONE .ROUTE (DC) Montelukast Sodium 10 MG DAILY PO Oxymetazoline HCl 2 ML BID NS Polyethylene Glycol 17 GM DAILY PO Guaifenesin/Dextromethorphan 10 ML Q6HP PRN PO Amlodipine Besylate 5 MG DAILY PO Levofloxacin/Dextrose 150 ML 1500 IV Alprazolam 0.5 MG TID PO Famotidine 20 MG DAILY PO Finasteride 5 MG DAILY PO Loratadine 10 MG DAILY PO Tamsulosin HCl 0.4 MG QHS PO Trazodone HCl 50 MG QHS PO Benzonatate 100 MG Q4HP PRN PO Albuterol/Ipratropium 3 ML QIDRT INH (r) Methylprednisolone Sodium Succinate 80 MG Q6 IV (r) Nicotine 21 MG DAILYP PRN TD Sodium Chloride 10 ML PRN PRN IV Tizanidine HCl 4 MG Q8HP PRN PO Last VS-Temp:98.3 B/P:133/82 Pulse:99 Resp:19 SaO2:98 OXYGEN Last weight lbs:141 oz:5 K.098 Method:Bed Scales Exam General appearance: normal appearance, no acute distress Eyes: normal exam ENT: normal exam Neck: normal inspection, full range of motion Cardiovascular: normal exam, regular rate & rhythm Respiratory: on oxygen, wheezing ABD: normal exam, normal bowel sounds, soft Genitourinary: normal voiding & quantity Extremities: normal exam, warm Musculoskeletal: normal exam Skin: normal exam, intact, warm Neuro: normal exam, alert, intact, oriented, speech clear Reviewed: allergies, medications, vital signs, lab results, radiology report, consult note Assessment/Plan Problem List 1. Acute respiratory failure with hypoxia and hypercapnia 2. COPD (chronic obstructive pulmonary disease) 3. Anxiety Patient condition Stable Plan: continue current care This inpt stay is expected to cross 2 MNs from start of care Yes Comments: spoke with [place] and he is ok to restart zithromax 250mg po every day until f/u with him on 04/02 at 1:00. rounded with kristen Antibiotic Stewardship (2) Infxn that will respond? Yes Right drug,dose,and route? Yes More targeted antbx? No at 1001
[2017-02-15] VITALS: BP 135/79
[2017-02-15 02:00] VITALS: BP 115/68
[2017-02-15 04:00] VITALS: BP 123/79
[2017-02-15 06:00] VITALS: BP 103/68
[2017-02-15 08:30] VITALS: BP 112/74
[2017-02-15] MEDS ORDERED: PREDNISONE 10MG10 MG PO (09:11)
[2017-02-15] MEDS ORDERED: ZITHROMAX 250M250 MG PO (09:11)
--- NOTE | 2017-02-15 09:16 | ACUTE CARE PROGRESS NOTE (QUA) ---
Progress Notes Subjective Date 02/15/17 Time 0912 Patient/family reports: feeling better Nursing reports: alert, no complaints Objective Findings Vital Signs Date Time Temp Pulse Resp B/P Pulse O2 O2 Flow FiO2 Ox Delivery Rate 02/15 0633 2 02/15 0619 2 02/15 0619 97 2 02/15 0612 2 02/15 0600 97.6 72 24 103/68 98 OXYGEN 2 02/15 0500 2 02/15 0403 2 02/15 0400 94 20 123/79 95 OXYGEN 2 02/15 0300 2 02/15 0200 97.5 84 20 115/68 95 2 02/15 0200 84 20 115/68 95 OXYGEN 2 02/15 0143 2 02/15 0100 2 02/15 0002 2 02/15 0000 97.5 80 20 135/79 96 OXYGEN 2 02/14 2255 2 02/14 2200 102 16 141/90 93 OXYGEN 2 02/14 2159 2 02/14 2030 2 02/14 2030 98.6 96 16 147/86 93 2 02/14 2010 2 02/14 2010 94 OXYGEN 2 02/14 2006 3 02/14 2000 98.6 94 16 147/86 92 OXYGEN 2 02/14 1800 3 02/14 1800 98.6 78 20 109/68 94 3 02/14 1700 98.6 78 20 109/68 96 OXYGEN 3 02/14 1500 98.8 99 20 133/82 96 OXYGEN 3 02/14 1300 3 02/14 1300 98.6 88 20 120/80 94 OXYGEN 3 02/14 1100 98.6 105 20 131/85 94 OXYGEN 3 Current Medications Alprazolam 0 .STK-MED ONE .ROUTE (DC) Benzonatate 0 .STK-MED ONE PO (DC) Guaifenesin/Dextromethorphan 0 .STK-MED ONE .ROUTE (DC) Alprazolam 0 .STK-MED ONE .ROUTE (DC) Benzonatate 0 .STK-MED ONE PO (DC) Guaifenesin/Dextromethorphan 0 .STK-MED ONE .ROUTE (DC) Montelukast Sodium 10 MG DAILY PO Oxymetazoline HCl 2 ML BID NS Polyethylene Glycol 17 GM DAILY PO Guaifenesin/Dextromethorphan 10 ML Q6HP PRN PO Amlodipine Besylate 5 MG DAILY PO Levofloxacin/Dextrose 150 ML 1500 IV (DC) Alprazolam 0.5 MG TID PO Famotidine 20 MG DAILY PO Finasteride 5 MG DAILY PO Loratadine 10 MG DAILY PO Tamsulosin HCl 0.4 MG QHS PO Trazodone HCl 50 MG QHS PO Benzonatate 100 MG Q4HP PRN PO Albuterol/Ipratropium 3 ML QIDRT INH (r) Methylprednisolone Sodium Succinate 80 MG Q6 IV (r) Nicotine 21 MG DAILYP PRN TD Sodium Chloride 10 ML PRN PRN IV Tizanidine HCl 4 MG Q8HP PRN PO Last VS-Temp:97.6 B/P:103/68 Pulse:72 Resp:24 SaO2:97 OXYGEN Last weight lbs:146 oz:3 K.31 Method:Bed Scales Exam General appearance: normal appearance, alert, awake, no acute distress Eyes: normal exam ENT: normal exam Neck: normal inspection, full range of motion Cardiovascular: normal exam, regular rate & rhythm Respiratory: normal exam, on oxygen, wheezing ABD: normal exam, normal bowel sounds, soft Genitourinary: normal voiding & quantity Extremities: normal exam, moves all, warm Musculoskeletal: normal exam Skin: normal exam, intact, warm Neuro: normal exam, alert, intact, oriented Reviewed: allergies, medications, vital signs, lab results, radiology report, consult note Assessment/Plan Problem List 1. Acute respiratory failure with hypoxia and hypercapnia 2. COPD (chronic obstructive pulmonary disease) 3. Anxiety Patient condition Stable Plan: initiate discharge plan This inpt stay is expected to cross 2 MNs from start of care Yes Comments: rounded with gregorio p[facility] home follow up in office in 7 days and [place] @ 1p. Antibiotic Stewardship (2) Current Culture Results Microbiology 02/10 0500 SPUTUM: Sputum Culture - COMP 02/10 0500 SPUTUM: Gram Stain - COMP 02/09 1235 BLOOD: Anaerobic Blood Culture - COMP 02/09 1235 BLOOD: Aerobic Blood Culture - COMP Infxn that will respond? Yes Right drug,dose,and route? Yes More targeted antbx? No at 0915
--- NOTE | 2017-02-15 09:22 | DISCHARGE SUMMARY STANDARD ---
Demographics Admit date: 02/09/17 Discharge date: 02/15/17 History of present illness History of present illness this wm presented to ed with progressive sob and wheezing over the last few days despite op rx - pt has sig hx of copd and in past had prolonged intubation and on ventilator - patient has severe shortness of breath. He has had a hacking cough for one week with some yellow sputum. He has felt feverish, but temperature not taken. Last night his breathing began getting worse and is now severely short of breath. He has severe chronic obstructive pulmonary disease. He has been on the ventilator in the past, most recently about a year and a half ago. He is a former smoker. He is on oxygen 2 L, 24 hours a day. He has a nebulizer he uses at home. He is on prednisone 5 mg a day maintenance.this noted from ed record Hospital Course Hospital Course: Iv steroids and antibotics, BYpap as needed x ray- copd nothing acute, per speech:Mr. Nunn was given the following consistencies: thins via straw and open cup, pudding, mechanical soft, regular, and pill with thin wash. Mr. Nunn did exhibit mild penetration into laryngeal vestibule but no aspiration was noted. At this time, it is advised that Mr. Nunn remain on current diet. Straws are not recommened. Mr. Nunn is at risk for fatigue due to compromised respiratory status. Speech therapy is not warranted at this time. Family states pt is on a antibotic he takes mwf and then rotates with a ceftfner but has been out and grandchild brought in a cold. discussed with medardo will restart zithromax 250 mg po saturday- saturday and tapering steroids. He sees [place] 04/02/17 will reevaluate the need to stay on daily antibotics then. Discharge diagnoses Problem List 1. Acute respiratory failure with hypoxia and hypercapnia 2. COPD (chronic obstructive pulmonary disease) 3. Anxiety Medications Medications: Discharge meds are as noted. Follow up Follow up in office in: 7 DAYS with: Kristen TOLBERT,Sean Mcdonald Comment: rounded with kristen at [id number]
[2017-02-15 11:18] VITALS: BP 112/74
== END 2017-02-15 11:34 | disposition home or self-care (01) | DRG 189 ==
LOC: ER 12:22 → 2ND 14:43 → ER 14:43 → ICU 15:50 → 2ND 15:50 → ICU 02-11 19:40 → 2ND 02-12 18:38
PROVIDERS: Emergency Medicine
PROC: 5A09557 Assistance with Respiratory Ventilation, Greater than 96 Consecutive Hours, Continuous Positive Airway Pressure (ICD-10-PCS; principal; 2017-02-09)
DX: J96.02 Acute respiratory failure with hypercapnia (principal); Z99.81 Dependence on supplemental oxygen; Z72.0 Tobacco use; J96.01 Acute respiratory failure with hypoxia

== ENCOUNTER → 2017-03-05 | Outpatient (CLI) | payer MEDICARE, MEDICAID ==
--- NOTE | 2017-03-07 12:28 | RADIOLOGY REPORT PS360 ---
EXAM: CT LUNG LOW DOSE WO CONTRAST TECHNIQUE: The exam was performed on a GE Light Speed [address] scanner using 3.0 mGy CTDI. A low dose helical CT CHEST was performed on a multi-detector scanner The LDCT was performed in a facility that meets the criteria for the screening program. Data regarding this exam was submitted to ACR which is an approved registry. The order for this exam indicates that it came as a result of a lung cancer screening counseling shard decision-making visit that included all the elements required of such a visit including smoking cessation. The radiologist interpreting this exam meets the CMS criteria for the LDCT lung cancer screening program. The exam is reported using the Lung-RADS classification scale and reported to the ACR registry. NOTE: This study was performed for the specific purposes of lung cancer screening and is not an alternative to diagnostic chest CT. RADIATION DOSE: CTDI vol(CT dose Index-volume) = 2.96mGy DLP (Dose Length Product) = 126.19 mGy-cm COMPARISON: CT chest December 2013 HISTORY: 1 pack per day for 48 years = 48 pack-years. Reportedly Quit smoking Chronic lung disease dense conglomerations FINDINGS: Severe advanced COPD. With villalobos lobar emphysematous changes again evident. Marked hyperexpansion the lung bilateral. Again the large large conglomerate areas of prominent calcified densities with scarring are seen again at are seen at the upper lobes bilaterally. These appear stable. There is scarring at the apices along with fibrocalcific changes here similar to prior study. The pleural-parenchymal scarring stranding and soft tissue components soft tissue mainly scarring component apex appears similar. No progression Annual follow-up adequate. Associated mild pleural thickening at the posterior upper left chest. There is additional atelectasis and scarring seen and fibrotic changes at the lingula and anterior body well. Additional progressive enlarging bleb formation overlying anterior left lingula. Could reflect ongoing inflammation or infiltrate but no mass lesion seen here. Question some tiny small patchy areas of possible active infiltrate at left upper lobe. 6 month follow-up is recommended and will system following these more likely benign features. Follow-up chest film suggested if current symptoms to further evaluate possible infiltrate/inflammation at the lingula & anterior WERO.. No suspicious masses or lesions. Would assign above findings as Indeterminate/Non-actionable Nodules(Category2):. . Mediastinum. No hilar no mediastinal adenopathy. No change here. OTHER ANATOMIC REGIONS Lymph Nodes: No enlarged lymph nodes evident. Scattered small nodes are present in the mediastinum and kirk Pleura: Unremarkable Cardiac: Unremarkable OTHER FINDINGS: Numerous compression deformities of developed at the T-spine since 2014. Mild to moderate wedge compression at T6 and T8 and to lesser degree mild mild wedge compression most evident at T6 and T8. Mild superior endplate compression superior L1. Mild accentuated kyphosis mid T-spine. IMPRESSION: 1. Severe emphysematous changes with marked hyperexpansion the lungs. Again note large conglomerate areas of mixed calcified and soft tissue density. Mainly calcified densities are at the upper lobes bilaterally. These appear overall stable. When compared to 2014 the distal scarring atelectasis fibrotic changes at lingula. I believe these are progressed over time likely evident on 2016 CXR retrospect. Recommend 2 view chest is compared to recent CXR.- Difficult To exclude active infiltrate anterior left upper lobe and lingula, but tend to favor likely progressive chronic process. . CT chest 6 months recommended for ongoing evaluation Lung RADS Category: 2 . RECOMMENDATIONS: PA and lateral chest at this time 6 monthd LDCT follow-up
== END ==
LOC: RAD 12:24
DX: Z87.891 Personal history of nicotine dependence (principal); Z12.2 Encounter for screening for malignant neoplasm of respiratory organs

== ENCOUNTER 2017-04-15 11:58 | Emergency (ER) | payer MEDICARE, MEDICAID ==
[~2017-04-15] VITALS: Ht 170.2 cm; Wt 68.0 kg
[~2017-04-15 11:58] MED LIST changes: +AMLO5TAB PO; +IPRATROPIUM BROM3 M1 IH; +MIRALAX17 GM/PACK PO; +SINGULAIR 10 MG10 MG PO; +SYMBICORT1 AE1 IH; +ZITHROMAX 250M250 MG PO
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
--- OUTSIDE RECORDS SUMMARY | 2017-04-15 12:27 | External Medical Summary Rpt | CCD ---
Author Author [employer] Organization [employer] Address Unknown Phone Unavailable Purpose Continuity of Care Document - through 2016
--- OUTSIDE RECORDS SUMMARY | 2017-04-15 12:28 | External Medical Summary Rpt | CCD ---
Demographics Preferred Language Yoruba Marital Status Unknown Cheondoism Affiliation Unknown Race Unknown Ethnic Group Unknown Author Author , INA BUCKLEY Address Unknown Phone Immunization No patient found.
--- OUTSIDE RECORDS SUMMARY | 2017-04-15 12:28 | External Medical Summary Rpt | CCD ---
Demographics Preferred Language Amharic Marital Status Unknown Zoroastrian Affiliation Unknown Race Unknown Ethnic Group Unknown Author Author , INA BUCKLEY Address Unknown Phone Immunization No patient found.
--- NOTE | 2017-04-15 12:57 | RADIOLOGY REPORT PS360 ---
CHEST-PORTABLE HISTORY: COPD dyspnea ORDERING PHYSICIAN: Oscar Gaines MD PATIENT AGE: 61 years COMPARISON: 02/11/2017 FINDINGS: The cardiomediastinal silhouette and pulmonary vascularity are within normal limits. There is COPD with hyperinflation and hyperlucency of the lungs. Scattered conglomerate masses are present as before in both lungs. There is peripheral increased consolidation in the left mid and lower lung zone which has developed in the interval consistent with peripheral airspace disease/pneumonia. A pleural component is also a consideration. Upright PA and lateral chest suggested for further evaluation. IMPRESSION: 1. COPD with progressive massive fibrosis/conglomerate masses over 2. New peripheral consolidation involving the left mid and lower lung zone laterally and may be due to peripheral pneumonia and/or pleural reaction/loculated effusion. Chest CT or upright PA and lateral chest may be of further value
[2017-04-15 12:59] LABS: LYMPH % 6.8 % (10-50)
[2017-04-15 13:00] LABS: HEMOGLOBIN 12.3 g/dL (14.1-18.0)
[2017-04-15 13:11] LABS: BUN 10 mg/dL (7-18)
--- NOTE | 2017-04-15 13:22 | Emergency Room Report ---
History of Present Illness Time Seen by 1202 Presenting Problem in Triage Pt arrived:Wheelchair Presenting Problem:PT C/O SOA X3 DAYS. PT USES O2 AT HOME DAILY. PT ADVISES HIS PCP RECOMMENDED HIM COMING IN AND HAVING A CHEST XRAY Onset of symptoms date/time:/ or onset unknown for:MEDICAL HX UNKNOWN Treatment Prior to Arrival: CERTIFIED MORTICIAN Provided by: Sepsis Risk Assessment: Temp: 98.7 B/P: 124/90 MAP: 101 Pulse: 117 Resp: 24 Recent fever? N Clinical Suspician of Infection? N Mental Status: 1 - Regular (Normal Baseline) Sepsis Risk:Possible Sepsis Risk Have you (or family members/close friends) recently traveled outside the [place]? N If Yes, where/when: Have you had exposure to infectious disease within the past month? N TB? Other? Specify: Source patient, RN notes reviewed, family, RN/MD Exam Limitations no limitations Comment This is 61-year-old male patient history of interstitial lung disease presented emergency room with subjective fever, productive cough and shortness of breath for the past 2 days, gradually getting worse. Patient is oxygen dependent at home, on 2 L oxygen by nasal cannula. His pulse oximetry usually ranges between 80 and 90 percent. ALLERGIES Coded Allergies: Iodinated Contrast- Oral and IV Dye (Iodinated Contrast Media - IV Dye) (Severe, G-IPIBMC-JBKR/THROAT 06/22/16) fluticasone (From Advair Diskus) (Severe, K-QRDMCZ-MLAY/THROAT 06/22/16) salmeterol (From Advair Diskus) (Severe, H-IESVFY-DDJY/THROAT 06/22/16) amoxicillin (Mild, 06/22/16) Home Medications Active Scripts Azithromycin (Zithromax 250 Mg) 250 MG PO DAILY #35 TAB Prov: 02/15/17 Prednisone (Prednisone 10MG) 10 MG PO DOSING PER PHARMACY #70 TAB Prov: 02/15/17 Reported Medications Omeprazole (Omeprazole 20MG) 20 MG PO DAILY Amlodipine Besylate (Amlodipine) 5 MG PO DAILY TAMSULOSIN HCL (Flomax 0.4MG) 0.4 MG PO QHS Budesonide 0.25 MG IH BID Famotidine (Famotidine 20MG) 20 MG PO DAILY Finasteride 5 MG PO DAILY TRAZODONE HCL (Trazodone HCl) 50 MG PO QHS Loratadine (Claritin 10MG Tab) 10 MG PO DAILY Alprazolam (Xanax 0.5MG) 0.5 MG PO BID Formoterol Fumarate (Perforomist) 20 MCG IH BID Propranolol Hcl (Inderal) 10 MG PO TID ALBUTEROL (Albuterol 0.083% Neb) 2.5 MG INH TID BUDESONIDE/FORMOTEROL FUMARATE (Symbicort 160-4.5 Mcg Inhaler) 2 PUFF IH BID ALBUTEROL-IPRATROPIUM (Iprat-Albut 0.5-3(2.5) MG/3 Ml) 3 ML IH QID Polyethylene Glycol 3350 (Miralax) 17 GM PO DAILY Montelukast Sodium (Singulair 10MG) 10 MG PO DAILY History Medical History General CAD? No Angina: Yes UT: No Hypertension? No Hyperlipidemia? No CHF? No DVT? No PE? No COPD? Yes Asthma? Yes Anemia? No GERD? No Gastric ulcers? No GI Bleed? No Hernia? No Thyroid Problems? No Hypothyroidism? No CVA? No Seizures? No Diabetes? No Renal Insuffiency? No End Stage Renal Disease? No UTI? No Stones? Yes BPH? No GB Disease: No Nephritic Syndrome? No Asplenia? No Hepatitis? No Sickle Cell Disease? No Arthritis? Yes Migraines? No Cataracts? No Glaucoma? No MRSA? No HIV? No TB? No Anxiety? Yes Depression? No Cancer? No More? No Immunization Hx DT/Tetanus Unknown Flu Refused Pneumonia Excluded/Contraindicated Surgical Hx Previous Surgery?Y HEART CATH TONSILECTOMY EAR TUBEs TRACH GTUBE Family History Family Hx Diabetes No CAD No Hypertension Yes Hyperlipidemia No Cancer Yes TB No Social History Smoking Hx Smoker: Former Smoker Tobacco: Yes Type Cigarettes Packs/day < 1 Pack Alcohol Alcohol: No Review of Systems All Other Systems Reviewed and Negative Respiratory shortness of breath, wheezing Physical Exam Vital Signs Vital Signs Date Time Temp Pulse Resp B/P Pulse O2 O2 Flow FiO2 Ox Delivery Rate 04/15 1437 98.7 105 24 128/92 94 3 04/15 1203 98.7 117 24 124/90 91 3 General Appearance normal appearance, WD/WN, mild distress Respiratory Status Yes: trachea midline, chest symmetrical, non tender chest. No: respiratory distress. Lung Sounds bilateral: wheezing. Cardiovascular normal exam, regular rate/rhythm, no peripheral edema, no gallop, no JVD, no murmur, no rub, normal peripheral pulses Gastrointestinal normal bowel sounds, normal exam, non tender, soft, no organomegaly Extremities non-tender, normal range of motion, normal inspection Neurologic alert, accounting file clerk II-XII nml as tested, normal exam, oriented x 3 Mental status normal mood/affect Skin intact, normal color, warm/dry Medical Decision Making LABS/Meds/Orders Pt receiving controlled substance in ED? No Comment 1330-case discussed with Dr. Ahuja, advised of patient's presentation and findings, recommended sending patient home, after receiving antibiotics in the emergency room, to be seen in his office tomorrow at 10 AM. Patient refusing admission stating that he has previously had pneumonia and dealt with it better at home, rather than in the hospital. He appears medically stable, clinically improving after receiving the medicine the emergency room. Results/Orders Laboratory Tests 04/15/17 1230: Sodium 134 L, Potassium 4.3, Chloride 97 L, Carbon Dioxide 30, BUN 10, Creatinine 1.0, Estimated Creat Clear 73, Estimated GFR (MDRD) 75, Glucose 157 H, Calcium 9.6, Total Bilirubin 0.2, AST 18, ALT 27, Alkaline Phosphatase 82, Creatine Kinase 21 L, CK-MB (CK-2) Rel Index 6.7 H, CK and CKMB Interp 1.4, Troponin I < 0.02, B-Natriuretic Peptide 58, Total Protein 7.9, Albumin 2.9 L, Globulin 5.0 H, Albumin/Globulin Ratio 0.6 L, PT 9.9, INR 0.92, APTT 28.7, D- Dimer 2610 *H, WBC 14.6 H, RBC 4.42 L, Hgb 12.3 L, Hct 38.5 L, MCV 87.0, RDW 14.1, Plt Count 332, MPV 7.3 L, Gran % 87.0 H, Gran # 12.7 H, Total Counted 100, Lymphocytes % 6.8 L, Monocytes % 5.0, Eosinophils % 0.6, Basophils % 0.5, Neutrophils 88 H, Lymphocytes (Manual) 8 L, Lymphocytes # 1.0, Monocytes ( Manual) 4, Monocytes # 0.7, Eosinophils # 0.1, Basophils # 0.1, Platelet Estimate NORMAL, PUBS MCHC 31.9, MCH 27.8 Orders Procedure Date/time Status DIET-NOTHING BY MOUTH 04/15 D Active RT REQUEST DUONEB 04/[address] CHEST W/PE PROTOCOL REQ 04/15 1315 Complete Decision to admit 04/15 1312 Active DIFFERENTIAL-WBC 04/15 1230 Complete ELECTROCARDIOGRAM REQUEST 04/15 1203 Active IV SALINE LOCK 04/15 1203 Active WEAVING LOOM OPERATOR 04/15 1203 Active PARTIAL THROMBOPLASTIN TIME 04/15 1203 Complete PROTHROMBIN TIME 04/15 1203 Complete D-DIMER 04/15 1203 Complete COMPLETE METABOLIC PANEL 04/15 1203 Complete CBC WITH AUTO DIFF 04/15 1203 Complete CARDIAC ENZYMES 04/15 1203 Complete BRAIN NATRIURETIC PEPTIDE 04/15 1203 Complete 12 LEAD EKG-LARISA (INITIAL) 04/15 UNK Active CM/EKG CM/network technology instructor Rhythm Normal Sinus Rhythm Rate 88 Ectopy No Comments No acute ischemic changes EKG rate, NSR, rhythm, no evid. of ischemic chgs, no ectopy, normal QRS, normal MT, no EKG for comparison, non-spec. ST/Twave chgs, ST elevation, ST depression, LBBB, RBBB, ectopy, abnormal Q waves XRAY/CT/US XRAY/CT/US XRAY chest XR interpretation by reviewed by me, discussed w/radiologist Xray Results normal heart size, LLL and LML infiltrates Departure Departure Time of Disposition 1400 Disposition DC Home or Self Care(routine) Clinical Impression Primary Impression: Pneumonia Qualifiers: Pneumonia type: due to unspecified organism Laterality: left Lung location: lower lobe of lung Qualified Code: J18.1 - Lobar pneumonia, unspecified organism Condition STABLE Referrals Leigha TOLBERT,Sean Mcdonald (Family) tomorrow at 10:00am Patient Instructions DI for Pneumonia -- Adult Additional Instructions Please follow-up with Dr. Ahuja tomorrow at 10 AM as already scheduled today, over the phone. Take the new medications as scheduled. Return promptly to this emergency room if worse. Discharge Counseling Counseled pt/family regarding diagnosis, test results, medications/RX, home care, follow up needs Prescriptions Current Visit Scripts Levofloxacin (Levaquin 750mg) 750 MG PO DAILY #10 TAB Prednisone (Prednisone 20MG) 60 MG PO DAILY #15 TAB ED Critical Care Critical Care No at 1036
--- NOTE | 2017-04-15 13:22 | Emergency Room Report ---
History of Present Illness Time Seen by 1202 Presenting Problem in Triage Pt arrived:Wheelchair Presenting Problem:PT C/O SOA X3 DAYS. PT USES O2 AT HOME DAILY. 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 N Clinical Suspician of Infection? N Mental Status: 1 - Regular (Normal Baseline) Sepsis Risk:Possible Sepsis Risk Have you (or family members/close friends) recently traveled outside the [place]? N If Yes, where/when: Have you had exposure to infectious disease within the past month? N TB? Other? Specify: Source patient, RN notes reviewed, family, RN/MD Exam Limitations no limitations Comment This is 61-year-old male patient history of interstitial lung disease presented emergency room with subjective fever, productive cough and shortness of breath for the past 2 days, gradually getting worse. Patient is oxygen dependent at home, on 2 L oxygen by nasal cannula. His pulse oximetry usually ranges between 80 and 90 percent. ALLERGIES Coded Allergies: Iodinated Contrast- Oral and IV Dye (Iodinated Contrast Media - IV Dye) (Severe, G-[id number]-LGDU/THROAT 06/22/16) fluticasone (From Advair Diskus) (Severe, M-AZRDTV-PQNR/THROAT 06/22/16) salmeterol (From Advair Diskus) (Severe, O-VOCWRB-ESIH/THROAT 06/22/16) amoxicillin (Mild, 06/22/16) Home Medications Active Scripts Azithromycin (Zithromax 250 Mg) 250 MG PO DAILY #35 TAB Prov: 02/15/17 Prednisone (Prednisone 10MG) 10 MG PO DOSING PER PHARMACY #70 TAB Prov: 02/15/17 Reported Medications Omeprazole (Omeprazole 20MG) 20 MG PO DAILY Amlodipine Besylate (Amlodipine) 5 MG PO DAILY TAMSULOSIN HCL (Flomax 0.4MG) 0.4 MG PO QHS Budesonide 0.25 MG IH BID Famotidine (Famotidine 20MG) 20 MG PO DAILY Finasteride 5 MG PO DAILY TRAZODONE HCL (Trazodone HCl) 50 MG PO QHS Loratadine (Claritin 10MG Tab) 10 MG PO DAILY Alprazolam (Xanax 0.5MG) 0.5 MG PO BID Formoterol Fumarate (Perforomist) 20 MCG IH BID Propranolol Hcl (Inderal) 10 MG PO TID ALBUTEROL (Albuterol 0.083% Neb) 2.5 MG INH TID BUDESONIDE/FORMOTEROL FUMARATE (Symbicort 160-4.5 Mcg Inhaler) 2 PUFF IH BID ALBUTEROL-IPRATROPIUM (Iprat-Albut 0.5-3(2.5) MG/3 Ml) 3 ML IH QID Polyethylene Glycol 3350 (Miralax) 17 GM PO DAILY Montelukast Sodium (Singulair 10MG) 10 MG PO DAILY History Medical History General CAD? No Angina: Yes [place]: No Hypertension? No Hyperlipidemia? No CHF? No DVT? No PE? No COPD? Yes Asthma? Yes Anemia? No GERD? No Gastric ulcers? No GI Bleed? No Hernia? No Thyroid Problems? No Hypothyroidism? No CVA? No Seizures? No Diabetes? No Renal Insuffiency? No End Stage Renal Disease? No UTI? No Stones? Yes BPH? No GB Disease: No Nephritic Syndrome? No Asplenia? No Hepatitis? No Sickle Cell Disease? No Arthritis? Yes Migraines? No Cataracts? No Glaucoma? No MRSA? No HIV? No TB? No Anxiety? Yes Depression? No Cancer? No More? No Immunization Hx DT/Tetanus Unknown Flu Refused Pneumonia Excluded/Contraindicated Surgical Hx Previous Surgery?Y HEART CATH TONSILECTOMY EAR TUBEs TRACH GTUBE Family History Family Hx Diabetes No CAD No Hypertension Yes Hyperlipidemia No Cancer Yes TB No Social History Smoking Hx Smoker: Former Smoker Tobacco: Yes Type Cigarettes Packs/day < 1 Pack Alcohol Alcohol: No Review of Systems All Other Systems Reviewed and Negative Respiratory shortness of breath, wheezing Physical Exam Vital Signs Vital Signs Date Time Temp Pulse Resp B/P Pulse O2 O2 Flow FiO2 Ox Delivery Rate 04/15 1437 98.7 105 24 128/92 94 3 04/15 1203 98.7 117 24 124/90 91 3 General Appearance normal appearance, WD/WN, mild distress Respiratory Status Yes: trachea midline, chest symmetrical, non tender chest. No: respiratory distress. Lung Sounds bilateral: wheezing. 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 No Comment 1330-case discussed with Dr. Ahuja, advised of patient's presentation and findings, recommended sending patient home, after receiving antibiotics in the emergency room, to be seen in his office tomorrow at 10 AM. Patient refusing admission stating that he has previously had pneumonia and dealt with it better at home, rather than in the hospital. He appears medically stable, clinically improving after receiving the medicine the emergency room. Results/Orders Laboratory Tests 04/15/17 1230: Sodium 134 L, Potassium 4.3, Chloride 97 L, Carbon Dioxide 30, BUN 10, Creatinine 1.0, Estimated Creat Clear 73, Estimated GFR (MDRD) 75, Glucose 157 H, Calcium 9.6, Total Bilirubin 0.2, AST 18, ALT 27, Alkaline Phosphatase 82, Creatine Kinase 21 L, CK-MB (CK-2) Rel Index 6.7 H, CK and CKMB Interp 1.4, Troponin I < 0.02, B-Natriuretic Peptide 58, Total Protein 7.9, Albumin 2.9 L, Globulin 5.0 H, Albumin/Globulin Ratio 0.6 L, PT 9.9, INR 0.92, APTT 28.7, D- Dimer 2610 *H, WBC 14.6 H, RBC 4.42 L, Hgb 12.3 L, Hct 38.5 L, MCV 87.0, RDW 14.1, Plt Count 332, MPV 7.3 L, Gran % 87.0 H, Gran # 12.7 H, Total Counted 100, Lymphocytes % 6.8 L, Monocytes % 5.0, Eosinophils % 0.6, Basophils % 0.5, Neutrophils 88 H, Lymphocytes (Manual) 8 L, Lymphocytes # 1.0, Monocytes ( Manual) 4, Monocytes # 0.7, Eosinophils # 0.1, Basophils # 0.1, Platelet Estimate NORMAL, PUBS MCHC 31.9, MCH 27.8 Orders Procedure Date/time Status DIET-NOTHING BY MOUTH 04/15 D Active RT REQUEST DUONEB 04/[address] CHEST W/PE PROTOCOL REQ 04/15 1315 Complete Decision to admit 04/15 1312 Active DIFFERENTIAL-WBC 04/15 1230 Complete ELECTROCARDIOGRAM REQUEST 04/15 1203 Active IV SALINE LOCK 04/15 1203 Active INTELLIGENCE SUPPORT OFFICER 04/15 1203 Active PARTIAL THROMBOPLASTIN TIME 04/15 1203 Complete PROTHROMBIN TIME 04/15 1203 Complete D-DIMER 04/15 1203 Complete COMPLETE METABOLIC PANEL 04/15 1203 Complete CBC WITH AUTO DIFF 04/15 1203 Complete CARDIAC ENZYMES 04/15 1203 Complete BRAIN NATRIURETIC PEPTIDE 04/15 1203 Complete 12 LEAD EKG-LARISA (INITIAL) 04/15 UNK Active 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 of ischemic chgs, no ectopy, normal QRS, normal FL, no EKG for comparison, non-spec. ST/Twave chgs, ST elevation, ST depression, LBBB, RBBB, ectopy, abnormal Q waves XRAY/CT/US XRAY/CT/US XRAY chest XR interpretation by reviewed by me, discussed w/radiologist Xray Results normal heart size, LLL and LML infiltrates Departure Departure Time of Disposition 1400 Disposition DC Home or Self Care(routine) Clinical Impression Primary Impression: Pneumonia Qualifiers: Pneumonia type: due to unspecified organism Laterality: left Lung location: lower lobe of lung Qualified Code: J18.1 - Lobar pneumonia, unspecified organism Condition STABLE Referrals Leigha TOLBERT,Sean Mcdonald (Family) tomorrow at 10:00am Patient Instructions DI for Pneumonia -- Adult Additional Instructions Please follow-up with Dr. Ahuja tomorrow at 10 AM as already scheduled today, over the phone. Take the new medications as scheduled. Return promptly to this emergency room if worse. Discharge Counseling Counseled pt/family regarding diagnosis, test results, medications/RX, home care, follow up needs Prescriptions Current Visit Scripts Levofloxacin (Levaquin 750mg) 750 MG PO DAILY #10 TAB Prednisone (Prednisone 20MG) 60 MG PO DAILY #15 TAB ED Critical Care Critical Care No at 1033
[2017-04-15 13:23] LABS: GFR (ESTIMATED) 75 ML/MIN (>60)
[2017-04-15] MEDS ORDERED: LEVAQUIN 750 M750 MG PO (14:01)
[2017-04-15] MEDS ORDERED: PREDNISONE 20MG20 MG PO (14:03)
[2017-04-15 14:05] LABS: NEUTROPHILS 88 % (42-76)
--- NOTE | 2017-04-15 14:15 | RADIOLOGY REPORT PS360 ---
CT CHEST W/O CONTRAST HISTORY: LLL PNEUMONIA, CHEST PAIN, COPD, chronic pulmonary disease ORDERING PHYSICIAN: Oscar Gaines MD PATIENT AGE: 61 years TECHNIQUE: Axial images obtained without contrast with sagittal and coronal reformatted images also reviewed. COMPARISON: 03/05/2017 FINDINGS: Severe panlobular emphysematous changes with bilateral conglomerate masses are once again noted. The conglomerate masses in the upper lobes have both soft tissue and calcific density. The cavitation previously noted in the right apex on 03/05/2017 has shown improvement. Dense consolidation is now present in the left lower lobe laterally consistent with pneumonia. Pneumonia is also present in the left lower lobe posteriorly. There are associated pulmonary fibrotic changes with honeycombing in the left lower lobe which has progressed since the previous exam. The above mentioned consolidation could obscure an underlying lung lesion therefore, follow-up is recommended. No evidence of pneumothorax or layering effusion. Normal heart size. There are coronary artery calcifications. Multiple thoracic wedge compression changes are once again noted and do not appear significantly changed. Upper abdominal images are unremarkable. IMPRESSION: 1. Severe panlobular emphysematous changes with conglomerate masses and pulmonary fibrosis with honeycombing in the left lower lobe. 2. Dense consolidation in the left lower lobe laterally and centrally toward the lung base as well as consolidation of left lower lobe posteriorly consistent with left-sided pneumonia.
[2017-04-15 14:37] VITALS: BP 128/92
== END 2017-04-15 14:38 | disposition home or self-care (01) ==
LOC: ER 11:58
PROVIDERS: Emergency Medicine
DX: J18.9 Pneumonia, unspecified organism (principal); J44.0 Chronic obstructive pulmonary disease with (acute) lower respiratory infection; Z87.891 Personal history of nicotine dependence; Z88.8 Allergy status to other drugs, medicaments and biological substances; Z88.1 Allergy status to other antibiotic agents; Z91.041 Radiographic dye allergy status; Z79.891 Long term (current) use of opiate analgesic; Z79.899 Other long term (current) drug therapy; Z87.442 Personal history of urinary calculi; Z99.81 Dependence on supplemental oxygen; M19.90 Unspecified osteoarthritis, unspecified site; F41.9 Anxiety disorder, unspecified